=== PATIENT | male | born 1990 | race Caucasian/White ===

== ENCOUNTER 2018-06-13 01:05 | Emergency (ER) | payer OTHER ==
[2018-06-13 01:12] VITALS: BP 129/87
--- NOTE | 2018-06-13 01:54 | EDPHY ---
H & P Stated Complaint: ELEVATED HR Time Seen by Provider: 06/13/18 01:34 HPI/ROS: Chief Complaint: Elevated heart rate HPI: 27-year-old type 1 diabetic male presenting with concerns that his heart rate has been elevated. Patient states that rest his heart has been in the 80- 100 range. He has not done over 100. He does wear an awful watching which monitors his heart rate. He did recently complete a 1 month course of doxycycline for possible Lyme disease. He has had some GI nausea but no vomiting or diarrhea. No fevers or chills. No cough. No leg pain or swelling. No shortness of breath. No chest pain. Does not have a family history of coronary artery disease or sudden cardiac . He is very well controlled with his diabetes, his last hemoglobin A1c was 6.5. He says his resting heart rate is normally in the 60s to 80s. ROS PMH: Type 1 diabetes Social History: No smoking Family History: non-contributory Physical Exam: Gen: Awake, Alert, No Distress HEENT: Nose: no rhinorrhea Eyes: PERRLA, EOMI Mouth: Moist mucosa Neck: Supple, no JVD Chest: nontender, lungs clear to auscultation Heart: S1, S2 normal, no murmur Abd: Soft, non-tender, no guarding Back: no CVA tenderness, no midline tenderness Ext: no edema, non-tender Skin: no rash Neuro: CN II-XII intact, Sensation grossly intact, Strength 5/5 in bilateral upper and lower extremities - Personal History Current Tetanus Diphtheria and Acellular Pertussis (TDAP): Yes - Medical/Surgical History Hx Asthma: No Hx Chronic Respiratory Disease: No Hx Diabetes: Yes Hx Cardiac Disease: No Hx Renal Disease: No Hx Cirrhosis: No Hx Alcoholism: No Hx HIV/AIDS: No Hx Splenectomy or Spleen Trauma: No Other PMH: DM I (INSULIN) - Social History Smoking Status: Never smoked Constitutional: Initial Vital Signs Temperature (C) 37.0 C 06/13/18 01:09 Heart Rate 99 06/13/18 01:09 Respiratory Rate 16 06/13/18 01:09 Blood Pressure 129/87 H 06/13/18 01:09 O2 Sat (%) 96 06/13/18 01:09 O2 Delivery Mode Room Air Allergies/Adverse Reactions: No Known Allergies Allergy (Unverified 06/13/18 01:09) Home Medications: Medication Instructions Recorded Humalog 06/13/18 Lantus 06/13/18 Medical Decision Making - Diagnostics EKG Interpretation: ECG time 1:39 a.m., sinus rhythm with a rate of 86, normal intervals, there is early repolarization, no acute ST or T-wave changes. Impression: Normal ECG. ED Course/Re-evaluation: 27-year-old type 1 diabetic male presenting with concerns about elevated heart rate. His heart rate here is 86. He has a completely normal exam. He is very well controlled his diabetes. Does not have any risk factors for coronary artery disease or sudden cardiac . I believe his symptoms are secondary to his recent course of doxycycline. Plan will be discharged to follow up with primary care physician. He will return for any concerns. Do not think any blood tests are indicated at this time. Departure - Departure Disposition: Home, Routine, Self-Care Clinical Impression: Palpitations Condition: Good Instructions: Heart Palpitations (ED) Additional Instructions: Follow up with primary care physician in 3-4 days for further evaluation. Return to the emergency department for chest pain, shortness of breath, heart racing, fainting, or any other concerns. Referrals: Aguila Jules MD [Primary Care Provider] - As per Instructions
--- NOTE | 2018-06-13 07:39 | CPEKG ---
Test Reason : OPEN Blood Pressure : / mmHG Vent. Rate : 086 BPM Atrial Rate : 091 BPM P-R Int : 161 ms QRS Dur : 096 ms QT Int : 362 ms P-R-T Axes : 081 080 060 degrees QTc Int : [address] elev, probable normal early repol pattern Confirmed by Antony Judd ([id number]) on 06/13/2018 7:38:42 AM Referred By: Confirmed By:Antony Judd
== END 2018-06-13 02:10 | disposition home or self-care (01) ==
DX: R00.2 Palpitations (principal); E10.9 Type 1 diabetes mellitus without complications